=== PATIENT | female | born 1995 | race Caucasian/White ===

== ENCOUNTER 2017-11-07 01:19 | Emergency (ER) | payer OTHER ==
[~2017-11-07] VITALS: Ht 152.4 cm; Wt 56.7 kg
[2017-11-07 01:22] VITALS: BP 115/75
[2017-11-07] MEDS ORDERED: TDAP [DIPH/PERTUSSIS/TET] 0.5 ML VIAL IM ONE ×2 (01:30→01:32)
== END 2017-11-07 02:09 | disposition home or self-care (01) ==
LOC: ER 01:19
DX: S81.812A Laceration without foreign body, left lower leg, initial encounter (principal); W18.09XA Striking against other object with subsequent fall, initial encounter; Y93.89 Activity, other specified; Y92.89 Other specified places as the place of occurrence of the external cause; Y99.8 Other external cause status
CPT/HCPCS: 73590-TC; 90715; A4606; A6402; Z7610